=== PATIENT | male | born 1950 | race Hispanic/Latino ===

== ENCOUNTER → 2017-06-05 | Outpatient (CLI) | payer OTHER ==
[~2017-06-05] MED LIST: ALPR-410 PO; AMLO5TAB2 PO; ATOR20TA65 PO; AURYXIA PO; CALC667C10 PO; ERGOCAL PO; FOLI0.8T22 PO; INSU100V12 SQ; LOSA50TA37 PO; METO-391 PO; NIFE30TA10 PO
[2017-06-05 08:59] LABS: INR 1.05 (0.85-1.15); PARTIAL THROMBOPLASTIN TIME 29.2 SEC (26.3-35.5)
[2017-06-05 13:42] LABS: APPEARANCE BODY FLUID TURBID (CLEAR); BODY FLUID WBC 213 /cu. mm.; COLOR,BODY FLUID RED (LT YELLOW); SPECIMENTYPE,BODY FLUID THORACENTESIS; TOTAL VOLUME,BODY FLUID 200 mL
[2017-06-05 13:43] LABS: BODY FLUID RBC 153650 /cu. mm.
[2017-06-05 14:19] LABS: BF EOSINOPHIL 4 %; BF LYMPHOCYTE 57 %; BF MESOTHELIAL 9 %; BF MONOCYTE 1 %
== END | disposition home or self-care (01) ==
LOC: RAH 08:11
PROVIDERS: ATTEND Internal Medicine Cardiovascular Disease
DX: J90 Pleural effusion, not elsewhere classified (principal); I13.2 Hypertensive heart and chronic kidney disease with heart failure and with stage 5 chronic kidney disease, or end stage renal disease; E11.22 Type 2 diabetes mellitus with diabetic chronic kidney disease; N18.6 End stage renal disease; I50.32 Chronic diastolic (congestive) heart failure; I34.0 Nonrheumatic mitral (valve) insufficiency; Z99.2 Dependence on renal dialysis; Z79.899 Other long term (current) drug therapy; Z79.4 Long term (current) use of insulin
CPT/HCPCS: 32555; 36415; 71045; 85610; 85730; 87071; 87205; 88108; 89051